=== PATIENT | female | born 1990 | race Two or more races ===

== ENCOUNTER 2017-12-08 21:29 | Emergency (ER) | END 2017-12-09 00:55 | disposition home or self-care (01) ==

== ENCOUNTER 2018-11-10 22:18 | Emergency (ER) | payer OTHER ==
[~2018-11-10] VITALS: Wt 102.1 kg
[~2018-11-10 22:18] MED LIST: ACET325T33 PO; CEPH500C PO; IBUP-1561 PO; LORA10CA PO; PREN1TAB62 PO
[2018-11-10 22:24] VITALS: BP 149/68; PULSE 72; RESP 18
[2018-11-11] MEDS ORDERED: ONDANSETRON (ODT) 4 MG TAB ODT STA (00:58)
[2018-11-11] MEDS ORDERED: HYDROCODONE/APAP (5/325) TAB PO ONE (01:00)
[2018-11-11] MEDS ORDERED: NAPR-985 PO (02:42)
[2018-11-11] MEDS ORDERED: HYDR-4011 PO (02:42)
[2018-11-11] MEDS ORDERED: CIPR500T4 PO (02:42)
[2018-11-11] MEDS ORDERED: MED4DP PO (02:42)
[2018-11-11] MEDS ORDERED: CYCL10TA7 PO (02:42)
--- NOTE | 2018-11-11 04:51 | ERD ---
ER Documentation Chief Complaint Chief Complaint LOWER BACK PAIN X'S 2 DAYS HPI 28-year-old female presenting with lower back pain times 2 days. She states that her pain is worse with walking. Denies any recent falls. Denies any numbness or tingling in her extremities and has normal urination bowel movement. She last took ibuprofen 4 hours prior to my evaluation. Denies any abdominal pain. Denies chest pain or shortness of breath. Denies fevers. Denies medical problems. NKDA. Surgical history denies. Social history denies ROS All systems reviewed and are negative except as per history of present illness. Medications Home Meds Active Scripts Naproxen* (Naprosyn*) 500 Mg Tablet, 500 MG PO BID PRN for PAIN AND/OR INFLAMMATION, #30 TAB Prov:JESSA ROBIN PA-C 11/11/18 Cyclobenzaprine Hcl* (Cyclobenzaprine Hcl*) 10 Mg Tablet, 10 MG PO TID, #15 TAB Prov:JESSA ROBIN PA-C 11/11/18 Hydrocodone/Acetaminophen (Neotsu 5-325 Tablet) 1 Each Tablet, 1 TAB PO Q6H PRN for PAIN, #7 TAB Prov:JESSA ROBIN PA-C 11/11/18 Methylprednisolone* (Medrol* DOSE PACK) 4 Mg/Dose-Pack Tab.ds.pk, 4 MG PO . DIRECTED, #1 PACKET Prov:JESSA ROBIN PA-C 11/11/18 Ciprofloxacin Hcl* (Ciprofloxacin Hcl*) 500 Mg Tablet, 500 MG PO BID for 7 Days, TAB Prov:JESSA ROBIN PA-C 11/11/18 Loratadine* (Claritin*) 10 Mg Capsule, 10 MG PO DAILY, #20 CAP Prov:CHASIDY MCCULLOUGH PA-C 12/09/17 Ibuprofen* (Motrin*) 400 Mg Tab, 400 MG PO Q6H PRN for PAIN AND OR ELEVATED TEMP, #30 TAB Prov:CHASIDY MCCULLOUGH PA-C 12/09/17 Acetaminophen* (Tylenol*) 325 Mg Tablet, 2 TAB PO Q4 PRN for PAIN AND OR ELEVATED TEMP, #30 TAB Prov:CHASIDY MCCULLOUGH PA-C 12/09/17 Reported Medications Cephalexin* (Cephalexin*) 500 Mg Capsule, 500 MG PO BID, #21 CAP 10/19/16 Vit-Iron Fumarate-FA ( Vitamin Tablet) 1 Each Tablet, 1 TAB PO DAILY, TAB 10/19/16 Allergies Allergies: Coded Allergies: No Known Allergy (Unverified , 10/19/16) PMhx/Soc Hx Alcohol Use: No Hx Substance Use: No Hx Tobacco Use: No Smoking Status: Never smoker FmHx Family History: No diabetes, No coronary disease, No other Physical Exam Vitals Vital Signs Date Temp Pulse Resp B/P (MAP) Pulse Ox O2 O2 Flow FiO2 Time Delivery Rate 11/10/18 97.3 72 18 149/68 98 22:24 (95) Physical Exam GENERAL: The patient is well-appearing, well-nourished, in no acute distress. CHEST: Clear to auscultation bilaterally. There are no rales, wheezes or rhonchi. HEART: Regular rate and rhythm. No murmurs, clicks, rubs or gallops. No S3 or S4. ABDOMEN:Soft, nontender and nondistended. Good bowel sounds. No rebound or guarding. No gross peritonitis. No gross organomegaly or masses. No Moya sign or McBurney point tenderness. BACK: No midline or flank tenderness. Tender palpation of bilateral paraspinous muscles most of the lumbar spine region. No bony step-offs on exam. EXTREMITIES: Equal pulses bilaterally. There is no peripheral clubbing, cyanosis or edema. No focal swelling or erythema. Full range of motion. Grossly neurovascularly intact. NEUROLOGIC: Alert and oriented. Cranial nerves II through XII intact. Motor strength in all 4 extremities with 5 out of 5 strength. Sensation grossly intact. Normal speech and gait. Babinski negative. DTR 2+ throughout. SKIN: There is no apparent rash or petechiae. The skin is warm and dry. Results 24 hrs Laboratory Tests Test 11/11/18 01:30 11/11/18 01:31 Bedside Urine pH (LAB) 6.0 Bedside Urine Protein (LAB) 2+ Bedside Urine Glucose (UA) Negative Bedside Urine Ketones (LAB) Trace Bedside Urine Blood 3+ Bedside Urine Nitrite (LAB) Negative Bedside Urine Leukocyte Esterase (L 2+ POC Beta HCG, Qualitative NEGATIVE Current Medications Medications Dose Sig/Shabbir Start Time Status Last (Trade) Ordered Route PRN Stop Time Admin Dose Reason Admin 1 tab ONCE ONCE 11/11/18 DC 11/11/18 Acetaminophen PO 01:00 01:37 / 11/11/18 01:01 Hydrocodone Bitart (Neotsu (5/325)) Ondansetron 4 mg ONCE STAT 11/11/18 DC 11/11/18 HCl (Zofran ODT 00:58 01:37 Odt) 11/11/18 00:59 Procedures/MDM DIAGNOSTIC IMAGING REPORT Patient: JUAN CARLOS RANKIN : 1990 Age: 28 Sex: F MR #: [id number] DOS: 11/11/18 0058 Ordering MD: BERTHA ROBIN PA-C Location: [facility] Room/Bed: PROCEDURE: XR Lumbar Spine. CLINICAL INDICATION: back pain TECHNIQUE: AP, lateral and cone-down lateral view of the lumbar spine were obtained. COMPARISON: No prior studies are available for comparison. FINDINGS: There is normal vertebral mineralization and alignment. No fracture or subluxation is seen. The disc spaces are normal in appearance. The posterior elements are unremarkable. The soft tissues appear normal. IMPRESSION: Unremarkable lumbar spine exam. MDM: 28-year-old female presenting with back pain. Patient's x-rays within normal limits and exam is non-concerning. Patient likely has muscular skeletal strain her urine does appear to have infection so we will treat with antibiotics. I have low suspicion for pyelonephritis. I have low suspicion for acute abdominal emergency radiating to the back. I have low suspicion for cauda equina, discitis, epidural abscess. Patient is discharged with supportive medications and told to follow-up with primary care within 1-2 days for close evaluation. Patient is told symptoms change or worsen to return to the ER immediately. Discharge Departure Diagnosis: Primary Impression: UTI (urinary tract infection) Additional Impression: Back pain Condition: Stable Patient Instructions: Understanding Urinary Tract Infections (UTIs), Back Pain (Acute Or Chronic) Referrals: COMM[facility]ITY [facility] YOU HAVE RECEIVED A MEDICAL SCREENING EXAM AND THE RESULTS INDICATE THAT YOU DO NOT HAVE A CONDITION THAT REQUIRES URGENT TREATMENT IN THE EMERGENCY DEPARTMENT. FURTHER EVALUATION AND TREATMENT OF YOUR CONDITION CAN WAIT UNTIL YOU ARE SEEN IN YOUR DOCTORS OFFICE WITHIN THE NEXT 1-2 DAYS. IT IS YOUR RESPONSIBILITY TO MAKE AN APPOINTMENT FOR FOLOW-UP CARE. IF YOU HAVE A PRIMARY DOCTOR --you should call your primary doctor and schedule an appointment IF YOU DO NOT HAVE A PRIMARY DOCTOR YOU CAN CALL OUR PHYSICIAN REFERRAL HOTLINE AT IF YOU CAN NOT AFFORD TO SEE A PHYSICIAN YOU CAN CHOSE FROM THE FOLLOWING [facility] [address] [facility] [address] [facility] [facility] [address] [facility] [address] [facility] [address]. [facility]. [address] Additional Instructions: FOLLOW UP WITH YOUR PRIMARY CARE PHYSICIAN TOMORROW.Return to this facility if you are not improving as expected. JESSA ROBIN PA-C Nov 11, 2018 04:51
== END 2018-11-11 03:12 | disposition home or self-care (01) ==
LOC: FTE 22:18
DX: N39.0 Urinary tract infection, site not specified (principal)
CPT/HCPCS: 72100; 81003; 81025; Z7502; Z7610